=== PATIENT | male | born 1955 | race Caucasian/White ===

== ENCOUNTER → 2018-01-06 07:51 | Outpatient (CLI) | payer OTHER, SELFPAY ==
[2018-01-06 09:12] LABS: Hemoglobin A1C% w Est Avg Glu 5.3 % (4.0-6.0)
[2018-01-06 09:37] LABS: Cholesterol 156 mg/dL (140-199); HDL Cholesterol 42 mg/dL (40-60); LDL Cholesterol Calculated 92 mg/dL (<100); Triglycerides 108 mg/dL (35-150); Uric Acid 7.5 mg/dL (3.5-8.5)
[2018-01-06 09:55] LABS: Hep C Virus Ab w/Reflex Quant NEGATIVE s/c (NEGATIVE)
== END ==
PROVIDERS: Visit Provider Family Medicine
DX: M10.9 Gout, unspecified (principal); Z13.1 Encounter for screening for diabetes mellitus; Z13.220 Encounter for screening for lipoid disorders; Z11.59 Encounter for screening for other viral diseases
CPT/HCPCS: 36415; 80061; 83036; 84550; 86803

== ENCOUNTER → 2020-02-09 15:03 | Outpatient (CLI) | payer MEDICARE, SELFPAY ==
--- NOTE | 2020-02-09 15:05 | DI.RAD.S_ITS ---
PROCEDURE: XR KNEE RT 3V INDICATIONS: knee pain TECHNIQUE: 3 views of the knee were acquired. COMPARISON: None. FINDINGS: Bones: No fractures or dislocations. No suspicious bony lesions. Soft tissues: No joint effusion. No suspicious soft tissue calcifications. IMPRESSION: Normal for age, source of current knee pain symptoms is not seen. Dictated by: Baldo Cuellar M.D. on 02/09/2020 at 15:25 Approved by: Baldo Cuellar M.D. on 02/09/2020 at 15:25
--- NOTE | 2020-02-09 15:05 | DI.RAD.S_ITS ---
PROCEDURE: XR LUMBAR SPINE MIN 4V INDICATIONS: LBP TECHNIQUE: 5 views of the lumbar spine were acquired. COMPARISON: None. FINDINGS: Bones: 5 nonrib-bearing vertebrae are present. There is normal bony alignment. No vertebral body compression fractures. No suspicious bony lesions. Mild degenerative disc disease, mild facet degeneration over the lower 3rd half of the LS spine. Soft tissues: Overlying bowel gas pattern is normal. No suspicious soft tissue calcifications. Oblique images: No pars defects. IMPRESSION: No trauma found. Only a mild degree of degenerative disc disease and facet osteoarthritis is identified from L3 inferiorly, without suspected spinal or foraminal stenosis. Dictated by: Baldo Cuellar M.D. on 02/09/2020 at 15:41 Approved by: Baldo Cuellar M.D. on 02/09/2020 at 15:42
== END ==
PROVIDERS: Referring Provider Physical Medicine & Rehabilitation; Visit Provider Physical Medicine & Rehabilitation
DX: M51.16 Intervertebral disc disorders with radiculopathy, lumbar region (principal); M47.26 Other spondylosis with radiculopathy, lumbar region; M17.11 Unilateral primary osteoarthritis, right knee; M25.561 Pain in right knee
CPT/HCPCS: 72110; 73562

== ENCOUNTER → 2020-05-13 09:55 | Outpatient (CLI) | payer MEDICARE, SELFPAY ==
[2020-05-13 11:05] LABS: BUN Creatinine Ratio 20.6 (6-22); Blood Urea Nitrogen 22 mg/dL (9-20); Calcium 9.1 mg/dL (8.4-10.2); Carbon Dioxide 30 mmol/L (22-32); Chloride 104 mmol/L (98-107); Estimated Glomerular Filt Rate > 60.0 mL/min (>60); Glucose 93 mg/dL (80-110); HEMOLYSIS < 15 (0-50); Potassium 4.3 mmol/L (3.4-5.1); Sodium 139 mmol/L (137-145)
[2020-05-13 11:37] LABS: Prostate Specific Antigen Scrn 2.83 ng/mL (0.1-4.0)
== END ==
PROVIDERS: PCP Student in an Organized Health Care Education/Training Program; Referring Provider Student in an Organized Health Care Education/Training Program; Visit Provider Student in an Organized Health Care Education/Training Program
DX: Z12.5 Encounter for screening for malignant neoplasm of prostate (principal); M10.9 Gout, unspecified
CPT/HCPCS: 36415; 80048; 84550; G0103

== ENCOUNTER → 2020-07-24 16:26 | Outpatient (CLI) | payer MEDICARE, SELFPAY ==
[2020-07-24] MEDS: COVID-19 VACC(MODERNA-1)/PF 100 MCG/0.5 ML VIAL IM (16:30)
== END ==
PROVIDERS: PCP Student in an Organized Health Care Education/Training Program; Visit Provider Internal Medicine
DX: Z23 Encounter for immunization (principal)
CPT/HCPCS: 0011A; 91301

== ENCOUNTER → 2020-08-21 16:16 | Outpatient (CLI) | payer MEDICARE, SELFPAY ==
[2020-08-21] MEDS: COVID-19 VACC #2, MRNA(MOD) 100 MCG/0.5 ML VIAL IM (16:23)
== END ==
PROVIDERS: PCP Student in an Organized Health Care Education/Training Program; Visit Provider Internal Medicine
DX: Z23 Encounter for immunization (principal)
CPT/HCPCS: 0012A; 91301

== ENCOUNTER → 2021-03-31 11:44 | Outpatient (CLI) | payer MEDICARE, SELFPAY ==
[2021-03-31 12:42] LABS: BUN Creatinine Ratio 14.2 (6-22); Blood Urea Nitrogen 16 mg/dL (9-20); Calcium 9.3 mg/dL (8.4-10.2); Carbon Dioxide 30 mmol/L (22-32); Chloride 104 mmol/L (98-107); Estimated Glomerular Filt Rate > 60.0 mL/min (>60); Glucose 95 mg/dL (80-110); HEMOLYSIS < 15 (0-50); Potassium 4.3 mmol/L (3.4-5.1); Sodium 138 mmol/L (137-145); Uric Acid 7.5 mg/dL (3.5-8.5)
[2021-03-31 13:13] LABS: Prostate Specific Antigen Scrn 2.73 ng/mL (0.1-4.0)
[2021-03-31 18:30] LABS: Vitamin D 25 Hydroxy (D3) 48.3 ng/mL (30.0-100.0)
== END ==
PROVIDERS: PCP Student in an Organized Health Care Education/Training Program; Referring Provider Student in an Organized Health Care Education/Training Program; Visit Provider Student in an Organized Health Care Education/Training Program
DX: Z12.5 Encounter for screening for malignant neoplasm of prostate (principal); E55.9 Vitamin D deficiency, unspecified; M10.9 Gout, unspecified
CPT/HCPCS: 36415; 80048; 82306; 84550; G0103

== ENCOUNTER → 2021-05-21 15:25 | Outpatient (CLI) | payer MEDICARE, SELFPAY ==
[2021-05-21] MEDS: COVID-19 VACC #3, MRNA(MOD) 50 MCG/0.25 ML VIAL IM (15:30)
== END ==
PROVIDERS: PCP Student in an Organized Health Care Education/Training Program; Visit Provider Internal Medicine
DX: Z23 Encounter for immunization (principal)
CPT/HCPCS: 0013A; 91301

== ENCOUNTER → 2022-09-12 16:10 | Outpatient (CLI) | payer MEDICARE, SELFPAY ==
--- NOTE | 2022-09-12 16:11 | DI.RAD.S_ITS ---
PROCEDURE: XR LUMBAR SPINE MIN 4V INDICATIONS: L4/5 radiculopathy TECHNIQUE: 5 views of the lumbar spine were acquired, including bilateral oblique views. COMPARISON: [facility], MR, MR LUMBAR SPINE WITHOUT CONTRAST, 12/17/2019, 13:07. [facility], CR, XR LUMBAR SPINE MIN 4V, 02/09/2020, 15:05. FINDINGS: Bones: Five nonrib-bearing vertebrae are present. There is normal bony alignment. No vertebral body compression fractures. No suspicious bony lesions. Multilevel disc space narrowing and degenerative endplate changes and multilevel facet hypertrophy are noted. Soft tissues: Overlying bowel gas pattern is normal. Small calcification projecting over the right paraspinal region appears unchanged. Oblique images: No pars defects. IMPRESSION: [id number] multilevel spondylosis has mildly progressed when compared to the radiographs from 02/09/2020. Lumbar spine MRI could be performed for further evaluation if indicated clinically. Approved by: Chapincito Gonzalez M.D. on 09/12/2022 at 20:39
== END ==
PROVIDERS: PCP Student in an Organized Health Care Education/Training Program; Referring Provider Physical Medicine & Rehabilitation; Visit Provider Physical Medicine & Rehabilitation
DX: M47.26 Other spondylosis with radiculopathy, lumbar region (principal); M43.16 Spondylolisthesis, lumbar region
CPT/HCPCS: 72110

== ENCOUNTER → 2022-09-17 11:43 | Outpatient (CLI) | payer MEDICARE, SELFPAY ==
[2022-09-17 13:00] LABS: HEMOLYSIS < 15 (0-50)
[2022-09-17 13:06] LABS: BUN Creatinine Ratio 16.2 (6-22); Blood Urea Nitrogen 19 mg/dL (9-20); Calcium 9.6 mg/dL (8.4-10.2); Carbon Dioxide 31 mmol/L (22-32); Chloride 101 mmol/L (98-107); Estimated Glomerular Filt Rate > 60 mL/min (>60); Glucose 86 mg/dL (80-110); Potassium 4.3 mmol/L (3.4-5.1); Sodium 139 mmol/L (137-145); Uric Acid 7.4 mg/dL (3.5-8.5)
[2022-09-23 02:39] LABS: Prostate Specific Antigen Scrn 4.83 ng/mL (0.1-4.0)
== END ==
PROVIDERS: PCP Student in an Organized Health Care Education/Training Program; Referring Provider Student in an Organized Health Care Education/Training Program; Visit Provider Student in an Organized Health Care Education/Training Program
DX: Z12.5 Encounter for screening for malignant neoplasm of prostate (principal); M10.9 Gout, unspecified
CPT/HCPCS: 36415; 80048; 84550; G0103

== ENCOUNTER → 2022-09-21 16:44 | Outpatient (CLI) | payer MEDICARE, SELFPAY ==
--- NOTE | 2022-09-21 16:46 | DI.MRI.S_ITS ---
PROCEDURE: MR LUMBAR SPINE WO CON INDICATIONS: Right L3-4 radiculopathy TECHNIQUE: Noncontrast sagittal T1 spin echo and T2 fast echo, sagittal STIR, and T2 fast spin echo through the lumbar spine. In cases with scoliosis, additional coronal T2 fast spin echo may be performed. COMPARISON: [facility], MR, MR LUMBAR SPINE WITHOUT CONTRAST, 12/17/2019, 13:07. FINDINGS: Image quality: Excellent. Alignment and Curvature: Trace anterolisthesis of L3 on L4. Trace retrolisthesis of L4 on L5. Bone Marrow: Marrow is of normal overall signal. No acute vertebral body compression fractures. Spinal Cord: Conus medullaris terminates at the L1-L2 level. Visualized cord demonstrates normal signal and size. Paraspinous Soft Tissues: No paravertebral masses. T12-L1: No significant change. Short pedicles. Disc bulge. Facet hypertrophy. Borderline canal stenosis. No foraminal stenosis. L1-L2: There is a very large right paracentral free disc fragment which, even though it extends to the level of the disc space, appears to have potentially originated from the L2-L3 level, where there is what appears to be communicating with that disc space via an annulus tear. The disc fragment fills the right lateral recess, obliterating the right L2 nerve root in the right lateral recess, as well as significantly impinging on multiple right-sided nerve root structures. On image 12/5, T2 axial sequence, the disc fragment measures 1.1 x 0.9 cm. The disc fragment also fills the left foramen at L2-L3, where it again markedly impinges on the right L2 nerve root. There are short pedicles, and there is borderline canal stenosis at the level of the disc. There is no significant foraminal narrowing. L2-L3: The free disc fragment described above appears to emanate from an annulus tear at the right foramen of L2-L3. There are short pedicles and there is prominent facet arthropathy. There is moderate canal stenosis. There is no left foraminal narrowing. L3-L4: Anterolisthesis of L3 on L4. Disc bulge. Facet hypertrophy. Short pedicles. Severe or marked canal stenosis. No significant foraminal stenosis. L4-L5: Disc bulge. Short pedicles. Prominent facet hypertrophy. Severe canal stenosis. There is right foraminal annulus tear subjacent to the exiting right L4 nerve root. There is associated mild disc protrusion in the foramen, with right L4 nerve root impingement. This appears to be relatively stable. L5-S1: Annulus tear plus disc bulge, as before. Short pedicles. Facet hypertrophy. Mild canal stenosis. No significant foraminal stenosis. IMPRESSION: 1. There is a very large free disc fragment, which has high signal suggesting acuity, which extends from the L1-L2 disc space to the L2-L3 disc space. It appears to emanate from a annulus tear at L2-L3. It fills the right lateral recess behind L2 and also fills the right L2-L3 foramen. It obliterates the right L2 nerve root in the lateral recess and in the foramen and impinges on multiple right-sided nerve root structures. 2. 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 3. Canal stenosis is moderate at L2-L3, severe or marked at L3-L4, severe at L4-L5, and mild at L5-S1. 4. At L4-L5, there is a right foraminal annulus tear associated with mild disc protrusion in the foramen with a degree of right L4 nerve root impingement. Dictated by: Too Salas M.D. on 09/22/2022 at 8:10 Approved by: Too Salas M.D. on 09/22/2022 at 8:21
== END ==
PROVIDERS: PCP Student in an Organized Health Care Education/Training Program; Referring Provider Physical Medicine & Rehabilitation; Visit Provider Physical Medicine & Rehabilitation
DX: M43.16 Spondylolisthesis, lumbar region (principal); M47.816 Spondylosis without myelopathy or radiculopathy, lumbar region; M47.817 Spondylosis without myelopathy or radiculopathy, lumbosacral region; M48.061 Spinal stenosis, lumbar region without neurogenic claudication; M48.07 Spinal stenosis, lumbosacral region; M51.26 Other intervertebral disc displacement, lumbar region
CPT/HCPCS: 72148

== ENCOUNTER → 2022-11-08 06:49 | Outpatient (CLI) | payer MEDICARE, SELFPAY ==
[2022-11-08 09:05] LABS: Cholesterol 156 mg/dL (140-199); HDL Cholesterol 37 mg/dL (40-60); LDL Cholesterol Calculated 97 mg/dL (<100); Triglycerides 111 mg/dL (35-150)
[2022-11-08 15:44] LABS: Prostate Specific Antigen 2.87 ng/mL (0.10-4.00)
== END ==
PROVIDERS: PCP Student in an Organized Health Care Education/Training Program; Referring Provider Student in an Organized Health Care Education/Training Program; Visit Provider Student in an Organized Health Care Education/Training Program
DX: Z13.6 Encounter for screening for cardiovascular disorders (principal); R97.20 Elevated prostate specific antigen [PSA]; Z13.220 Encounter for screening for lipoid disorders
CPT/HCPCS: 36415; 80061; 84153

== ENCOUNTER 2022-11-10 09:28 | Outpatient (CLI) | payer MEDICARE, SELFPAY ==
[2022-11-10] VITALS (9 sets, daily range): BP systolic 121–152; BP diastolic 57–81; PULSE 61–69; RESP 14–18; TEMP 36.8; O2SAT 98–100
--- NOTE | 2022-11-10 09:29 | DI.RAD.S_ITS ---
PROCEDURE: PAIN L/S TRANSFORAMINAL INJECT INDICATIONS: SPONDYLOSIS COMPARISON: None. FINDINGS: Fluoroscopic spot filming was performed to verify placement of spinal needles at the mid lumbar level(s), as labeled on the films. Appropriate location(s) of the needle tip(s) was confirmed by injection of iodinated contrast. IMPRESSION: Needle placement as above Dictated by: Emani Delaney M.D. on 11/10/2022 at 11:54 Transcribed by: FLORES on 11/10/2022 at 11:55 Approved by: Emani Delaney M.D. on 11/10/2022 at 16:08
[2022-11-10] MEDS: MIDAZOLAM 2 MG/2 ML VIAL IV (10:43)
[2022-11-10] MEDS: DEXAMETHASONE 10 MG/ML VIAL 20 MG INJ (10:48)
[2022-11-10] MEDS: BETAMETHASONE 30 MG/5 ML MDV 12 MG INJ (10:48)
[2022-11-10] MEDS: BUPIVACAINE 0.25% (PF) VIAL 5 ML SUBCUT (10:48)
[2022-11-10] MEDS: IOPAMIDOL 15 ML VIAL 3 ML INJ (10:49)
--- NOTE | 2022-11-10 11:07 | P.PCN_ITS ---
Date/Time/Diagnoses Date of procedure: 11/10/22 Time of procedure: 11:07 Pre-procedure diagnosis: 1. FORAMINAL STENOSIS WITH LE SYMPTOMS Post-procedure diagnosis: same Procedure Notes Procedure: 1. FLUOROSCOPICALLY GUIDED CONTRAST CONTROLLED TRANSFORAMINAL EPIDURAL STEROID INJECTION - RIGHT L2/3 TFESI Indications: Jaime is referred by Dr. Williamson for treatment of Foraminal Stenosis with right LE Symptoms Physician: Kilo Gary Total Fluoroscopy time (seconds): 10 Total sedation minutes: 12 Complications: none Procedure in detail & Post-procedure care: FINDINGS Foraminal Nerve Root Compression secondary to disc disease and facet hypertrophy DESCRIPTION OF PROCEDURE Following review of allergy and review of potential side effects and complications, including, but not necessarily limited to, infection, allergic reaction, local tissue breakdown, stroke, temporary or permanent nerve injury, paralysis, and possible , the patient indicated that the patient understood and agreed to proceed. An informed consent document was signed by the patient, witnessed by a nurse, and placed in the patient's chart. Additionally, other treatment options including medications, modalities, and physical therapy were reviewed with the patient. After review of previous anaesthesic history and IV conscious sedation the patient was deemed safe to proceed with today?s procedure with IV conscious sedation as ASA class II designation. Safety time-out was performed to confirm patient ID, procedure to be performed and site of procedure. IV sedation was accomplished with a combination of 2mg of Versed was administered by the RN after DO order, titrated to patient comfort during the course of the procedure while the patient remained responsive to all verbal commands In the prone position following sterile prep and drape of the lumbar region, the right L2/3 posterior neuroforamen was identified fluoroscopically. The skin was anesthetized via a 25-gauge 1.5-inch needle with 1% lidocaine solution. At this point, a 25-gauge 3.5-inch spinal needle was atraumatically introduced and advanced under fluoroscopic guidance through the posterior right L2/3 neuroforamen to approximately the anterior aspect of the canal. Depth was confirmed on lateral view. Following negative aspiration, injection of approximately 1.5 cc of Isovue 200 under live fluoroscopy in the AP view con firmed excellent flow along the nerve root, into the epidural space without vascular or intrathecal uptake observed Radiological data, including multiple fluoroscopic views of the lumbosacral spine, reveal a spinal needle at the right L2/3 posterior neuroforamen. Subsequent views show flow of contrast material flowing superiorly and inferiorly along the nerve root confirming epidural flow. Subsequently, a test dose of 1.5 cc of 1% lidocaine solution was administered and patient was observed for two minutes for signs or symptoms of complications, including abdominal pain, shortness of breath, bilateral upper or lower extremity weakness, nausea and vomiting, prior to steroid injection. At this point, a total of 3cc or 20mg of dexamethasone and 6mg of betamethasone was injected without incident. The patient tolerated the procedure well without signs or symptoms of complications prior to transfer to the recovery area continued monitoring without incident. The patient was then transferred to the recovery area where they were observed for an appropriate time after the injection. The patient reported a VAS score of 7 prior to the procedure and a post-procedure VAS of 0. POST OP INSTRUCTIONS The patient was provided a Pain Log to continue to record their response to the target-specific procedure prior to follow-up visit with their referring ph ysician. Additionally, specific post-injection care instructions and a contact number to our office were provided if concerns arise regarding possible complications associated with the procedure are suspected.
== END 2022-11-10 11:16 | disposition home or self-care (01) ==
LOC: RAD 09:29
PROVIDERS: PCP Student in an Organized Health Care Education/Training Program; Referring Provider Physical Medicine & Rehabilitation; Visit Provider Physical Medicine & Rehabilitation
DX: M48.061 Spinal stenosis, lumbar region without neurogenic claudication (principal); M51.16 Intervertebral disc disorders with radiculopathy, lumbar region
CPT/HCPCS: 64483; 99152; J0702; J1100; J2250; J3490

== ENCOUNTER → 2022-12-13 16:40 | Outpatient (CLI) | payer MEDICARE, SELFPAY ==
--- NOTE | 2022-12-13 16:40 | DI.US.S_ITS ---
PROCEDURE: US ABDOMEN LIMITED INDICATIONS: gall stones, RUQ pain w meals TECHNIQUE: Real-time scanning was performed of the abdominal and retroperitoneal organs, with image documentation. COMPARISON: None. FINDINGS: Liver: Liver is normal in size and homogeneous in echotexture. A few shadowing stones present. Gallbladder: No stones. Biliary ducts: Intrahepatic bile ducts are non-dilated. Extrahepatic bile duct caliber measures 5 mm. Normal is 6-7 mm or less in diameter, or 10 mm or less post-cholecystectomy. Pancreas: Visualized portions of the pancreas demonstrate mildly increased echogenicity. Miscellaneous: No free abdominal fluid. IMPRESSION: No gallstones or gallbladder pathology. Increased pancreatic echogenicity, which may indicate fat deposition or chronic parenchymal disease. Consider correlation with lipase. Dictated by: Siva Hines M.D. on 12/14/2022 at 8:37 Approved by: Siva Hines M.D. on 12/14/2022 at 8:41
== END ==
PROVIDERS: Family Provider Family Medicine; PCP Family Medicine; Referring Provider Family Medicine; Visit Provider Family Medicine
DX: K80.20 Calculus of gallbladder without cholecystitis without obstruction (principal)
CPT/HCPCS: 76705

== ENCOUNTER → 2022-12-15 07:01 | Outpatient (CLI) | payer MEDICARE, SELFPAY ==
[2022-12-15 08:59] LABS: Lipase 112 U/L (23-300)
== END ==
PROVIDERS: Family Provider Family Medicine; PCP Family Medicine; Referring Provider Family Medicine; Visit Provider Family Medicine
DX: K80.50 Calculus of bile duct without cholangitis or cholecystitis without obstruction (principal); R10.11 Right upper quadrant pain; R10.12 Left upper quadrant pain
CPT/HCPCS: 36415; 83690; 99214

== ENCOUNTER → 2022-12-16 13:47 | Outpatient (CLI) | payer MEDICARE, SELFPAY ==
[2022-12-19 10:38] LABS: Fecal Immunochemical Test Negative (Negative)
== END ==
PROVIDERS: Family Provider Family Medicine; PCP Family Medicine; Referring Provider Student in an Organized Health Care Education/Training Program; Visit Provider Student in an Organized Health Care Education/Training Program
DX: Z12.11 Encounter for screening for malignant neoplasm of colon (principal)
CPT/HCPCS: 82274

== ENCOUNTER → 2022-12-22 14:37 | Outpatient (CLI) | payer MEDICARE, SELFPAY | PROVIDERS: Family Provider Family Medicine; PCP Family Medicine; Referring Provider Physical Medicine & Rehabilitation; Visit Provider Physical Medicine & Rehabilitation | DX: M47.816 Spondylosis without myelopathy or radiculopathy, lumbar region (principal); M51.26 Other intervertebral disc displacement, lumbar region | CPT/HCPCS: 95886; 95909 ==

== ENCOUNTER 2022-12-23 11:03 | Day surgery (SDC) | payer MEDICARE, SELFPAY ==
[2022-12-23] VITALS (9 sets, daily range): BP systolic 120–142; BP diastolic 70–93; PULSE 44–74; RESP 10–18; TEMP 36.1–36.7; O2SAT 94–100; BMI 23.3
--- NOTE | 2022-12-23 | PATH_ITS ---
[facility] Accession Number: [id number] No. of containers..01 Tissue . 01 Material submitted: . gallbladder - GALLBLADDER . 01 Diagnosis: Gallbladder, Cholecystectomy: Mild chronic cholecystitis. No evidence of neoplasm. [facility] 12/27/2022 1534 Local . 01 Electronically signed: . Paras Pendleton MD, PhD, Pathologist NPI- [id number] . 01 Gross description: . The specimen is received in formalin labeled with the patient's name, , and gallbladder, and consists of an intact gallbladder measuring 7.4 x 2.3 x 2.3 cm. The cystic duct is received closed with a clamp, is inked blue, and no pericystic lymph node is identified. The lumen is filled with dark green mucoid bile, and no calculi are identified in the lumen or the container. The mucosa is green and velvety with no discoloration, polyps, or lesions identified. The garza average 0.2 cm thick. [employer] sections to include the cystic duct margin and full-thickness sections are submitted in cassette A1. ([id number]) /[facility] 12/24/2022 1434 Local . 01 Pathologist provided ICD-10: K81.1 . 01 CPT . 744317 Specimen Comment: A courtesy copy of this report has been sent to [phone] Performed at: 01 [facility] [address] [place] [address], [place], [place] [id number] MD Teja Jenkins MD Phone: [phone]
[2022-12-23] MEDS: LACTATED RINGERS 1,000 ML 100 ML IV ×2 (11:40→14:24)
--- NOTE | 2022-12-23 12:38 | PM.PREOP ---
Pre-operative Note Interval Note History & Physical reviewed/Exam performed by Physician: Yes Changes to H&P: No
[2022-12-23] MEDS: CEFAZOLIN 2 GM/100 ML PREMIX 100 ML IV (13:00)
--- NOTE | 2022-12-23 13:25 | SUR.OPER ---
Supine on padded OR bed, head on pillow, arms secured on padded arm boards at <90 degrees abduction, legs uncrossed, safety belt at thigh, tape over blanket over lower legs. Supine on padded OR bed, head on pillow, arms secured on padded arm boards at <90 degrees abduction, legs uncrossed, safety belt at thigh, tape over blanket over lower legs.
[2022-12-23] MEDS: BUPIVACAINE 0.25% (PF) VIAL 30 ML INJ (13:31)
[2022-12-23] MEDS: ONDANSETRON 4 MG/2 ML INJ IV (14:28)
[2022-12-23] MEDS: OXYCODONE/ACETAMINOPHEN 5/325 TABLET 1 TAB PO ×2 (14:32→15:10)
--- NOTE | 2022-12-23 15:37 | P.OP_ITS ---
Operative Date/Time/Diagnoses Date of procedure: 12/23/22 Time of procedure: 15:37 Pre-op diagnosis: biliary colic Post-op diagnosis: same Procedure & Clinicians Procedure: laparoscopic choelcystectomy Same procedure as scheduled: Yes Indications: symptoms and radiographic signs consistent with biliary colic Surgeon: Robin Yen Click Yes if Unassisted: Yes Anesthesia Type: General Operative Notes Findings: chronic cholecystitis Specimen(s): other (gallbladder) Estimated Blood Loss (mL): 10 Procedure in detail: The patient was placed supine on the table and bilateral lower extremity compression devices were applied. Anesthesia was induced they were intubated with an endotracheal tube and received 2g of Ancef. A time-out was performed. They were prepped and draped in sterile fashion. An infraumbilical incision was made. The fascia was elevated incised and the abdomen was entered atr aumatically. A blunt tip 12mm balloon trocar was then inserted, pneumoperitoneum was established and inspection of the abdomen demonstrated no evidence of injury. They were placed head up and right side up and then a 11 mm port was placed high in the epigastrium and two 5mm in the right upper quadrant. The omentum was well adhered to the gallbladder consistent with chronic cholecystitis. The duodenum was also attached to the gallbladder and this was taken down with sharp dissection. The gallbladder was grasped by the fundus and retracted over the liver and retracted laterally by the infundibulum. Using electrocautery the lateral plane between the gallbladder and the liver was opened towards the fundus. The gallbladder was then retracted laterally and the medial plane was developed in the same manner. With the gallbladder mobilized the bottom of the cystic plate was visualized. The hepatocystic triangle was meticulosly skeletonized with blunt dissection of fat and fibrous tissue from both the front and the back. Only two structures were then clearly seen entering the gallbladder the cystic duct and the cystic artery. With the critical view of safety fully established the cystic duct was clipped twice proximally and once distally using the 10 mm Weck hemoclip applied under direct visualization and then sharply divided. The cystic artery was divided in the same fashion. The gallbladder was removed from the liver bed using electro cautery. The liver bed was then inspected for hemostasis and this was achieved. The abdomen was irrigated with sterile saline and inspection was made that showed the clips in good position. The specimen was removed using Endo-Catch. The abdomen was desufflated. The umbilical fascia was closed with 0 Vicryl in a [id number] fashion under direct visualization. Skin incisions were irrigated and closed with 4-0 Monocryl. 30 ml of 0.25% bupivacaine was infiltrated into the subcutaneous tissue of the incisions. The wounds were sealed with Dermabond. Patient emerged from anesthesia was extubated and transferred to recovery in stable condition. The sponge and instrument count at the end of the operation was correct. Complications: none Post-operative Condition: stable Disposition: same day surgery
== END 2022-12-23 15:42 | disposition home or self-care (01) ==
PROVIDERS: Family Provider Family Medicine; PCP Family Medicine; Referring Provider Surgery; Visit Provider Surgery
PROC: 0FT44ZZ Resection of Gallbladder, Percutaneous Endoscopic Approach (ICD-10-PCS; CPT 47562; principal; 2022-12-23 12:30)
DX: K81.1 Chronic cholecystitis (principal)
CPT/HCPCS: 47562; J0690; J1100; J1885; J2250; J2405; J2704; J3010

== ENCOUNTER → 2023-01-05 14:11 | Outpatient (CLI) | payer MEDICARE, SELFPAY ==
[2023-01-05 16:10] LABS: Add Manual Diff / Slide Review NO; Basophils Absolute Auto 0 /uL (0-100); Basophils Percent Auto 0.2 % (0-2); Eosinophils Absolute Auto 100 /uL (0-450); Eosinophils Percent Auto 0.7 % (2-4); Hematocrit 40.2 % (41-53); Hemoglobin 13.7 g/dL (13.5-17.5); Lymphocytes Absolute Auto 1500 /uL (1100-4500); Lymphocytes Percent Auto 20.5 % (25-40); Mean Corpuscular HGB Conc 34.2 % (30-36); Mean Corpuscular Hemoglobin 30.8 PG (26-34); Mean Corpuscular Volume 90.1 fL (80-100); Monocytes Absolute Auto 300 /uL (0-900); Monocytes Percent Auto 4.5 % (3-14); Neutrophils Absolute Auto 5300 /uL (1500-7000); Neutrophils Percent Auto 74.1 % (50-75); Platelet Count 216 X10^3/uL (150-400); Red Blood Cell Count 4.46 X10^6/uL (4.5-5.9); White Blood Cell Count 7.1 X10^3/uL (4.5-11.0)
[2023-01-05 16:19] LABS: Alanine Aminotransferase 33 IU/L (<50); Albumin 3.9 g/dL (3.5-5.0); Albumin Globulin Ratio 1.7 (1.0-2.8); Alkaline Phosphatase 63 U/L (38-126); Aspartate Aminotransferase 26 IU/L (17-59); BUN Creatinine Ratio 13.6 (6-22); Bilirubin Total 0.4 mg/dL (0.2-1.3); Blood Urea Nitrogen 14 mg/dL (9-20); Calcium 8.6 mg/dL (8.4-10.2); Carbon Dioxide 28 mmol/L (22-32); Chloride 96 mmol/L (98-107); Estimated Glomerular Filt Rate > 60 mL/min (>60); Globulin 2.3 g/dL (1.7-4.1); Glucose 133 mg/dL (80-110); HEMOLYSIS < 15 (0-50); Potassium 4.3 mmol/L (3.4-5.1); Sodium 134 mmol/L (137-145); Total Protein 6.2 g/dL (6.3-8.2)
== END ==
PROVIDERS: Family Provider Family Medicine; PCP Family Medicine; Referring Provider Surgery; Visit Provider Surgery
DX: R19.7 Diarrhea, unspecified (principal)
CPT/HCPCS: 36415; 80053; 85025

== ENCOUNTER → 2023-01-06 10:27 | Outpatient (CLI) | payer MEDICARE, SELFPAY | PROVIDERS: Family Provider Family Medicine; PCP Family Medicine; Referring Provider Surgery; Visit Provider Surgery | DX: R19.7 Diarrhea, unspecified (principal) | CPT/HCPCS: 87045; 87899 ==

== ENCOUNTER → 2023-01-06 | Outpatient (CLI) | payer MEDICARE, SELFPAY | PROVIDERS: Family Provider Family Medicine; PCP Family Medicine; Referring Provider Surgery; Visit Provider Surgery ==

== ENCOUNTER → 2023-11-01 16:12 | Outpatient (CLI) | payer MEDICARE, SELFPAY ==
--- NOTE | 2023-11-01 16:14 | DI.MRI.S_ITS ---
PROCEDURE: MR LUMBAR SPINE WO CON INDICATIONS: Spinal stenosis, lumbar region TECHNIQUE: Noncontrast sagittal T1 spin echo and T2 fast echo, sagittal STIR, and T2 fast spin echo through the lumbar spine. In cases with scoliosis, additional coronal T2 fast spin echo may be performed. COMPARISON: [facility], MR, MR LUMBAR SPINE WO CON, 09/21/2022, 16:57. FINDINGS: Image quality: Excellent. Alignment and Curvature: Mild grade 1 anterior degenerative spondylolisthesis L3-4 Bone Marrow: Marrow is of normal overall signal. No acute vertebral body compression fractures. Spinal Cord: Conus medullaris terminates at the L1 level. Visualized cord demonstrates normal signal and size. Paraspinous Soft Tissues: No paravertebral masses. T12-L1: Normal appearance. L1-L2: Normal appearance. L2-L3: Disc space narrowing with broad-based disc bulge and hypertrophic facet joints results in moderate central stenosis. Persistent superimposed lateral disc protrusion contributes to moderate right foraminal stenosis. Nevertheless, large free disc fragment in the right lateral recess has resolved L3-L4: Disc space narrowing and circumferential disc bulge with hypertrophic facet joints combines result in severe central stenosis. Foramina are relatively preserved. L4-L5: Disc space narrowing and broad-based disc bulge with hypertrophic facet joints and ligamentum flavum laxity combined result in moderate central stenosis. Moderate bilateral foraminal stenosis. L5-S1: Disc space is preserved. Hypertrophic facet joints and ligamentum flavum laxity noted without significant central stenosis. No foraminal stenosis. IMPRESSION: Large disc fragment previously noted at the L 2 level has resolved in the interval. There is a persistent right lateral disc protrusion at L2-3 contributes to moderate right foraminal stenosis. Degenerative disc disease and arthropathy associated with severe central stenosis L3-4 as well as moderate central stenosis at L4-5 Approved by: Lavon Kaufman M.D. on 11/01/2023 at 16:24
== END ==
PROVIDERS: Family Provider Family Medicine; PCP Family Medicine; Referring Provider Neurological Surgery; Visit Provider Neurological Surgery
DX: M48.062 Spinal stenosis, lumbar region with neurogenic claudication (principal); M51.26 Other intervertebral disc displacement, lumbar region; M51.36 Other intervertebral disc degeneration, lumbar region; M47.816 Spondylosis without myelopathy or radiculopathy, lumbar region; M47.817 Spondylosis without myelopathy or radiculopathy, lumbosacral region
CPT/HCPCS: 72148

== ENCOUNTER → 2023-12-14 17:12 | Outpatient (CLI) | payer MEDICARE, SELFPAY ==
--- NOTE | 2023-12-14 17:13 | DI.RAD.S_ITS ---
PROCEDURE: XR KNEE RT 3V INDICATIONS: Anterior knee pain TECHNIQUE: 3 views of the knee were acquired. COMPARISON: [facility], , XR KNEE RT 3V, 02/09/2020, 15:00. FINDINGS: Bones: No fractures or dislocations. Tiny patellar osteophytes. No suspicious bony lesions. Soft tissues: Trace joint effusion. No suspicious soft tissue calcifications. IMPRESSION: Minimal degenerative changes most pronounced at the patellofemoral compartment. Dictated by: Rick Baca M.D. on 12/15/2023 at 14:15 Approved by: Rick Baca M.D. on 12/15/2023 at 14:16
== END ==
PROVIDERS: Family Provider Family Medicine; PCP Family Medicine; Referring Provider Physical Medicine & Rehabilitation; Visit Provider Physical Medicine & Rehabilitation
DX: M17.11 Unilateral primary osteoarthritis, right knee (principal)
CPT/HCPCS: 73562

== ENCOUNTER → 2024-12-14 11:29 | Outpatient (CLI) | payer MEDICARE, SELFPAY ==
[2024-12-14 12:42] LABS: Estimated Glomerular Filt Rate > 60 mL/min (>60)
[2024-12-14 13:15] LABS: Prostate Specific Antigen 5.31 ng/mL (0.10-4.00)
== END ==
PROVIDERS: Family Provider Family Medicine; PCP Family Medicine; Referring Provider Family Medicine; Visit Provider Urology
DX: R97.20 Elevated prostate specific antigen [PSA] (principal); Z80.42 Family history of malignant neoplasm of prostate
CPT/HCPCS: 36415; 82565; 84153

== ENCOUNTER → 2024-12-19 18:40 | Outpatient (CLI) | payer MEDICARE, SELFPAY ==
--- NOTE | 2024-12-19 18:42 | DI.MRI.S_ITS ---
PROCEDURE: MR PELVIC PROSTATE PROTOCOL INDICATIONS: Elevated and rising PSA TECHNIQUE: Coronal HASTE, axial T1 FSE with fat saturation, 3-plane nonbreath-hold T2 FSE. After the administration of contrast, dynamic axial, delayed axial and coronal VIBE or 2-D FLASH with fat saturation through the pelvis. Diffusion weighted imaging and ADC was performed. COMPARISON: None. FINDINGS: Image quality: Diffusion weighted and dynamic contrast enhanced images are diagnostic. Prostate: Gland size is 4.9 x 3.9 x 5.4 cm; ellipsoid gland volume is 54 mL. PSA density is 0.0981 Transitional zone heterogenous nodules are present, either well encapsulated or mostly encapsulated, compatible with PI-RADS 1 or 2 likely BPH nodules. Mildly T2 hypointense heterogenous striated appearance of the peripheral zone is commonly seen with current or prior prostatitis, PI-RADS 2. A small lesion is seen in the apex anterior fibroma stroma (5/18, 25/18) measuring 1.1 x 0.5 cm. T2 score 3. DWI score 3. DCE negative. PI-RADS 3. Differential for this region includes focal area of fibrosis Genitourinary system: Unremarkable Bowel and peritoneum: No small bowel obstruction. No drainable abscess or ascites Nodes and vessels: No aneurysmal vessel identified. No enlarged lymph nodes by size criteria. Soft tissues: No suspicious pelvic wall abnormality. Possible small fat containing inguinal hernias Bones: No aggressive appearing osseous abnormality. IMPRESSION: No suspicious PI-RADS 4 or 5 findings to suggest clinically significant prostate adenocarcinoma. The predominant findings are prostatomegaly and sequelae of BPH. A small PI-RADS 3 lesion is seen in the anterior fibromuscular stroma at the apex. No seminal vesicle involvement. No enlarged lymph nodes by size criteria. No suspicious osseous enhancement in the pelvis. Dictated by: Arias Diehl M.D. on 12/21/2024 at 9:28 Approved by: Arias Diehl M.D. on 12/21/2024 at 9:34
== END ==
PROVIDERS: Family Provider Family Medicine; PCP Family Medicine; Referring Provider Urology; Visit Provider Urology
DX: N40.0 Benign prostatic hyperplasia without lower urinary tract symptoms (principal); R97.20 Elevated prostate specific antigen [PSA]; N42.9 Disorder of prostate, unspecified; Z80.42 Family history of malignant neoplasm of prostate
CPT/HCPCS: 72197; A9579

== ENCOUNTER → 2025-02-03 13:55 | Outpatient (CLI) | payer MEDICARE, SELFPAY ==
[2025-02-03 15:16] LABS: Prostate Specific Antigen 5.35 ng/mL (0.10-4.00)
== END ==
PROVIDERS: Family Provider Family Medicine; PCP Family Medicine; Referring Provider Family Medicine; Visit Provider Family Medicine
DX: R97.20 Elevated prostate specific antigen [PSA] (principal)
CPT/HCPCS: 36415; 84153

== ENCOUNTER → 2025-06-21 08:54 | Outpatient (CLI) | payer MEDICARE, SELFPAY ==
--- NOTE | 2025-06-21 10:05 | DI.CT.S_ITS ---
PROCEDURE: CT ABDOMEN PELVIS WO CON INDICATIONS: RUQ ABD PX TECHNIQUE: CT of the abdomen and pelvis was obtained without intravenous contrast. Coronal and sagittal reformats were performed. For radiation dose reduction, the following was used: automated exposure control, adjustment of mA and/or kV according to patient size. COMPARISON: None. FINDINGS: Image quality: Diagnostic. Lower Chest: Calcified granuloma, right lung base. Heart size is within normal limits. Lung bases are clear. ABDOMEN: Liver: No contour-deforming mass. Numerous liver calcifications are likely benign, and likely represent chronic granulomatous disease. Gallbladder: Absent Biliary ducts: No biliary dilation. Pancreas: No ductal dilation. Spleen: Size is within normal limits. Adrenal Glands: No adrenal nodules. Benign bilateral adrenal calcifications. Kidneys and Ureters: No hydronephrosis. No contour-deforming mass. Stomach and Bowel: Normal colonic caliber, without significant wall thickening. Peritoneum: No abnormal intraperitoneal fluid. No free air. Ventral Wall: No significant hernia. Abdominal Nodes: No retroperitoneal or mesenteric adenopathy by size criteria. Vessels: Aorta and inferior vena cava are normal in size. PELVIS: Pelvic Organs: Unremarkable. Bladder: Unremarkable. Pelvic Nodes: No enlarged lymph nodes. Miscellaneous: No inguinal hernias are seen. Bones: No aggressive osseous abnormality. Congenitally short pedicles with disc bulges and facet arthropathy. There is multilevel canal stenosis. Severe at L3-L4. IMPRESSION: 1. Remote cholecystectomy. 2. No findings which explain right upper quadrant pain. 3. No acute abdominal process. 4. Note made of congenitally short pedicles with superimposed degenerative change resulting in multilevel canal stenosis, severe at L3-L4. Dictated by: Too Salas M.D. on 06/22/2025 at 9:56 Approved by: Too Salas M.D. on 06/22/2025 at 10:04
== END ==
PROVIDERS: PCP Family Medicine; Referring Provider Family Medicine; Visit Provider Family Medicine
DX: R10.11 Right upper quadrant pain (principal); M47.816 Spondylosis without myelopathy or radiculopathy, lumbar region; M48.02 Spinal stenosis, cervical region; Z90.49 Acquired absence of other specified parts of digestive tract
CPT/HCPCS: 74176